=== PATIENT | male | born 1975 | race Hispanic/Latino ===

== ENCOUNTER 2020-12-09 18:33 | Inpatient (IN) | payer SELFPAY ==
[2020-12-09] MEDS ORDERED: Ondansetron PF 4 MG/2 ML Vial IVP PRN ×2 (20:10→20:15)
[2020-12-09] MEDS ORDERED: Sodium Chloride 0.9% 1,000 ML IV PRN ×4 (20:15)
[2020-12-09] MEDS ORDERED: Insulin Regular 300 UNITS/3 ML VIAL IVP SCH (20:15)
[2020-12-09] MEDS ORDERED: Dextrose 50% Abboject 50 ML SYRINGE SLOW IVP PRN (20:15)
[2020-12-09] MEDS ORDERED: Dextrose 5% in Water 1,000 ML IV PRN (20:15)
[2020-12-09] MEDS ORDERED: Electrolyte Replacement Protocol FS SCH (20:15)
[2020-12-09] MEDS ORDERED: HUMULIN R 100 UNITS in Sodium Chloride 0.9% 100 ML IVPB SCH (20:15)
[2020-12-09] MEDS ORDERED: D5 1/2 NS w/20 mEq KCL 1,000 ML ONE (20:15)
[2020-12-09] MEDS ORDERED: NS 0.9% w/ 20 MEQ KCL 1,000 ML/1,000 ML BAG IV PRN (20:15)
[2020-12-09] MEDS ORDERED: Ondansetron ODT 4 MG TAB SL PRN (20:15)
[2020-12-09] MEDS ORDERED: Dextrose 5 %-0.45 % NaCl 1,000 ML IV PRN (20:15)
[2020-12-09] MEDS ORDERED: Acetaminophen 325 MG TAB PO PRN (20:15)
[2020-12-09 20:22] VITALS: BMI 26.6
[2020-12-09 20:36] LABS: Hemoglobin A1c Greater than 14.0 % (4.0-6.0)
[2020-12-09 20:55] LABS: ALT (SGPT) 11 U/L (8-55); AST (SGOT) 9 U/L (5-34); Albumin 3.2 g/dL (3.5-5.0); Alkaline Phosphatase 155 U/L (40-110); Anion Gap 15 mmol/L (10-20); BUN (Urea Nitrogen) 10 mg/dL (8.9-20.6); Bilirubin, Total 0.2 mg/dL (0.2-1.2); Calc. Creatinine Clearance 109 mL/min (70-130); Carbon Dioxide 14 mmol/L (22-29); Chloride 115 mmol/L (98-107); Globulin 3.2 g/dL (2.4-3.5); Glucose 147 mg/dL (70-105); Potassium 3.2 mmol/L (3.5-5.1); Protein, Total 6.4 g/dL (6.0-8.3); Sodium 141 mmol/L (136-145)
[2020-12-09] MEDS: Potassium Chloride 10 MEQ in Premix Bag 1 BAG IVPB SCH ×2 (21:41→22:50)
[2020-12-09] MEDS: NS 0.9% w/ 20 MEQ KCL 1,000 ML/1,000 ML BAG IV PRN (21:41)
[2020-12-10 00:14] LABS: Anion Gap 19 mmol/L (10-20); BUN (Urea Nitrogen) 9 mg/dL (8.9-20.6); Calc. Creatinine Clearance 115 mL/min (70-130); Calcium 7.8 mg/dL (7.8-10.44); Carbon Dioxide 11 mmol/L (22-29); Chloride 115 mmol/L (98-107); Glucose 185 mg/dL (70-105); Potassium 3.9 mmol/L (3.5-5.1); Sodium 141 mmol/L (136-145)
[2020-12-10 00:33] LABS: HIV (1/2) Antibody/Antigen Non-Reactive (NonReactive); HIV 1/2 INDEX 0.17 S/CO (<1.00)
[2020-12-10] MEDS ORDERED: Potassium Chloride 20 MEQ in Premix Bag 1 BAG IVPB SCH (00:45)
[2020-12-10] MEDS: NS 0.9% w/ 20 MEQ KCL 1,000 ML/1,000 ML BAG IV PRN ×2 (02:12→06:11)
[2020-12-10 02:46] LABS: #Basophils 0.1 thou/uL (0.0-0.2); #Eosinphils 0.1 thou/uL (0.0-0.7); #Neutrophils 15.4 thou/uL (1.40-6.50); %Basophils 0.3 % (0.0-1.0); %Eosinophils 0.6 % (0.0-10.0); %Lymphocytes 10.6 % (21.0-51.0); %Monocytes 5.3 % (0.0-10.0); %Neutrophils 83.2 % (42.0-75.0); Hemoglobin 13.9 g/dL (14.0-18.0); Mean Corpuscular HGB CONC 34.2 g/dL (32.0-36.0); Mean Corpuscular Volume 93.6 fL (78.0-98.0); Mean Platelet Volume 7.5 fL (7.4-10.4); Platelet Count 305 thou/uL (130-400); RBC Distribution Width 11.7 % (11.5-14.5); Red Blood Cell (RBC) Count 4.33 mill/uL (4.70-6.10); White Blood Cell (WBC) Count 18.5 thou/uL (4.8-10.8)
[2020-12-10 03:08] LABS: Anion Gap 18 mmol/L (10-20); BUN (Urea Nitrogen) 7 mg/dL (8.9-20.6); Calc. Creatinine Clearance 109 mL/min (70-130); Calcium 8.2 mg/dL (7.8-10.44); Carbon Dioxide 11 mmol/L (22-29); Chloride 114 mmol/L (98-107); Glucose 179 mg/dL (70-105); Potassium 4.2 mmol/L (3.5-5.1); Sodium 139 mmol/L (136-145)
[2020-12-10 06:28] LABS: Anion Gap 16 mmol/L (10-20); BUN (Urea Nitrogen) 6 mg/dL (8.9-20.6); Calc. Creatinine Clearance 136 mL/min (70-130); Calcium 7.7 mg/dL (7.8-10.44); Carbon Dioxide 12 mmol/L (22-29); Chloride 115 mmol/L (98-107); Glucose 159 mg/dL (70-105); Potassium 3.7 mmol/L (3.5-5.1); Sodium 139 mmol/L (136-145)
[2020-12-10] MEDS: D5 1/2 NS w/20 mEq KCL 1,000 ML IV PRN ×4 (08:12→20:13)
[2020-12-10] MEDS: Enoxaparin Sodium 40 MG/0.4 ML SYRINGE SC SCH (08:32)
[2020-12-10] MEDS: Nystatin 500,000 UNITS/5 ML UDCUP SSW SCH ×4 (08:32→20:13)
[2020-12-10 10:22] LABS: Anion Gap 14 mmol/L (10-20); BUN (Urea Nitrogen) 5 mg/dL (8.9-20.6); Calc. Creatinine Clearance 136 mL/min (70-130); Calcium 7.9 mg/dL (7.8-10.44); Carbon Dioxide 16 mmol/L (22-29); Chloride 112 mmol/L (98-107); Glucose 197 mg/dL (70-105); Potassium 3.5 mmol/L (3.5-5.1); Sodium 138 mmol/L (136-145)
[2020-12-10] MEDS ORDERED: Potassium Chloride 40 MEQ in Sodium Chloride 0.9% 250 ML 250 ML IVPB SCH ×2 (10:45→20:15)
[2020-12-10 12:25] LABS: Anion Gap 13 mmol/L (10-20); BUN (Urea Nitrogen) 4 mg/dL (8.9-20.6); Calc. Creatinine Clearance 144 mL/min (70-130); Calcium 7.8 mg/dL (7.8-10.44); Carbon Dioxide 16 mmol/L (22-29); Chloride 110 mmol/L (98-107); Glucose 164 mg/dL (70-105); Potassium 3.4 mmol/L (3.5-5.1); Sodium 136 mmol/L (136-145)
[2020-12-10 14:35] LABS: Anion Gap 12 mmol/L (10-20); BUN (Urea Nitrogen) 4 mg/dL (8.9-20.6); Calc. Creatinine Clearance 148 mL/min (70-130); Calcium 7.8 mg/dL (7.8-10.44); Carbon Dioxide 17 mmol/L (22-29); Chloride 111 mmol/L (98-107); Glucose 178 mg/dL (70-105); Potassium 3.7 mmol/L (3.5-5.1); Sodium 136 mmol/L (136-145)
[2020-12-10 17:00] LABS: Anion Gap 16 mmol/L (10-20); BUN (Urea Nitrogen) 4 mg/dL (8.9-20.6); Calc. Creatinine Clearance 136 mL/min (70-130); Calcium 8.1 mg/dL (7.8-10.44); Carbon Dioxide 13 mmol/L (22-29); Chloride 109 mmol/L (98-107); Glucose 217 mg/dL (70-105); Potassium 4.3 mmol/L (3.5-5.1); Sodium 134 mmol/L (136-145)
[2020-12-10 19:54] LABS: Anion Gap 10 mmol/L (10-20); BUN (Urea Nitrogen) Less than 4 mg/dL (8.9-20.6); Calc. Creatinine Clearance 160 mL/min (70-130); Calcium 7.8 mg/dL (7.8-10.44); Carbon Dioxide 20 mmol/L (22-29); Chloride 105 mmol/L (98-107); Glucose 197 mg/dL (70-105); Sodium 132 mmol/L (136-145)
[2020-12-10] MEDS ORDERED: Potassium Chloride 20 MEQ TAB PO SCH (20:15)
[2020-12-10] MEDS: NPH, Human Insulin Isophane 300 UNIT/3 ML VIAL SC SCH (20:25)
[2020-12-10] MEDS ORDERED: Nystatin 500,000 UNITS/5 ML UDCUP SSW SCH (21:00)
[2020-12-10 23:53] LABS: Anion Gap 15 mmol/L (10-20); BUN (Urea Nitrogen) Less than 4 mg/dL (8.9-20.6); Calc. Creatinine Clearance 171 mL/min (70-130); Calcium 7.9 mg/dL (7.8-10.44); Carbon Dioxide 18 mmol/L (22-29); Chloride 101 mmol/L (98-107); Glucose 153 mg/dL (70-105); Magnesium 1.4 mg/dL (1.6-2.6); Potassium 3.4 mmol/L (3.5-5.1); Sodium 131 mmol/L (136-145)
[2020-12-11] MEDS ORDERED: HumaLOG 300 UNITS/3 ML VIAL SC PRN (02:20)
[2020-12-11] MEDS ORDERED: Dextrose 5% in Water 1,000 ML IV PRN (02:20)
[2020-12-11 03:35] LABS: #Eosinphils 0.1 thou/uL (0.0-0.7); #Lymphocytes 2.1 thou/uL (1.20-3.40); #Monocytes 0.8 thou/uL (0.11-0.59); #Neutrophils 8.8 thou/uL (1.40-6.50); %Eosinophils 1.2 % (0.0-10.0); %Monocytes 6.4 % (0.0-10.0); %Neutrophils 74.4 % (42.0-75.0); Hemoglobin 13.7 g/dL (14.0-18.0); Mean Corpuscular Volume 91.5 fL (78.0-98.0); Mean Platelet Volume 7.6 fL (7.4-10.4); Platelet Count 309 thou/uL (130-400); RBC Distribution Width 11.4 % (11.5-14.5); Red Blood Cell (RBC) Count 4.26 mill/uL (4.70-6.10); White Blood Cell (WBC) Count 11.9 thou/uL (4.8-10.8)
[2020-12-11 03:57] LABS: Anion Gap 16 mmol/L (10-20); BUN (Urea Nitrogen) Less than 4 mg/dL (8.9-20.6); Calc. Creatinine Clearance 177 mL/min (70-130); Calcium 8.1 mg/dL (7.8-10.44); Carbon Dioxide 17 mmol/L (22-29); Chloride 101 mmol/L (98-107); Glucose 169 mg/dL (70-105); Potassium 3.6 mmol/L (3.5-5.1); Sodium 130 mmol/L (136-145)
[2020-12-11] MEDS ORDERED: Magnesium Sulfate 4 GM in Sodium Chloride 0.9% 250 ML 250 ML IVPB SCH (06:15)
[2020-12-11] MEDS: Enoxaparin Sodium 40 MG/0.4 ML SYRINGE SC SCH (08:10)
[2020-12-11] MEDS: Nystatin 500,000 UNITS/5 ML UDCUP SSW SCH ×4 (08:11→20:47)
[2020-12-11] MEDS: metFORMIN 500 MG TAB PO SCH ×2 (08:11→17:20)
[2020-12-11] MEDS: NPH, Human Insulin Isophane 300 UNIT/3 ML VIAL SC SCH ×2 (08:19→20:47)
[2020-12-11] MEDS ORDERED: Magnesium Oxide 400 MG TAB PO ONE (09:00)
[2020-12-11] MEDS: Lisinopril 10 MG TAB PO SCH (10:17)
[2020-12-11] MEDS: Lactated Ringer's 1,000 ML IV SCH ×2 (10:17→17:20)
[2020-12-11 10:43] LABS: ALT (SGPT) 9 U/L (8-55); AST (SGOT) 11 U/L (5-34); Alkaline Phosphatase 153 U/L (40-110); Anion Gap 15 mmol/L (10-20); BUN (Urea Nitrogen) 5 mg/dL (8.9-20.6); Bilirubin, Total 0.2 mg/dL (0.2-1.2); Calc. Creatinine Clearance 146 mL/min (70-130); Calcium 8.1 mg/dL (7.8-10.44); Carbon Dioxide 19 mmol/L (22-29); Chloride 98 mmol/L (98-107); Globulin 3.2 g/dL (2.4-3.5); Glucose 374 mg/dL (70-105); Potassium 3.8 mmol/L (3.5-5.1); Protein, Total 6.2 g/dL (6.0-8.3); Sodium 128 mmol/L (136-145)
[2020-12-11] MEDS: HumaLOG 300 UNITS/3 ML VIAL SC PRN ×2 (10:53→21:28)
[2020-12-11 14:19] LABS: ALT (SGPT) 9 U/L (8-55); AST (SGOT) 10 U/L (5-34); Albumin 2.9 g/dL (3.5-5.0); Alkaline Phosphatase 143 U/L (40-110); Anion Gap 14 mmol/L (10-20); BUN (Urea Nitrogen) 5 mg/dL (8.9-20.6); Bilirubin, Total 0.2 mg/dL (0.2-1.2); Calc. Creatinine Clearance 144 mL/min (70-130); Calcium 8.2 mg/dL (7.8-10.44); Carbon Dioxide 24 mmol/L (22-29); Chloride 99 mmol/L (98-107); Glucose 257 mg/dL (70-105); Potassium 3.5 mmol/L (3.5-5.1); Protein, Total 5.9 g/dL (6.0-8.3); Sodium 133 mmol/L (136-145)
[2020-12-12] MEDS: Lactated Ringer's 1,000 ML IV SCH (01:08)
[2020-12-12] MEDS: HumaLOG 300 UNITS/3 ML VIAL SC PRN ×2 (06:17→14:55)
[2020-12-12 06:26] LABS: #Eosinphils 0.1 thou/uL (0.0-0.7); #Monocytes 0.7 thou/uL (0.11-0.59); %Basophils 0.5 % (0.0-1.0); %Eosinophils 1.9 % (0.0-10.0); %Lymphocytes 29.3 % (21.0-51.0); %Monocytes 9.6 % (0.0-10.0); %Neutrophils 58.6 % (42.0-75.0); Hemoglobin 12.6 g/dL (14.0-18.0); Mean Corpuscular HGB CONC 34.8 g/dL (32.0-36.0); Mean Corpuscular Hemoglobin 31.8 pg (27.0-31.0); Mean Corpuscular Volume 91.3 fL (78.0-98.0); Mean Platelet Volume 7.5 fL (7.4-10.4); Platelet Count 301 thou/uL (130-400); RBC Distribution Width 11.3 % (11.5-14.5); Red Blood Cell (RBC) Count 3.95 mill/uL (4.70-6.10); White Blood Cell (WBC) Count 6.8 thou/uL (4.8-10.8)
[2020-12-12 06:45] LABS: Anion Gap 15 mmol/L (10-20); BUN (Urea Nitrogen) 7 mg/dL (8.9-20.6); Calc. Creatinine Clearance 179 mL/min (70-130); Calcium 7.8 mg/dL (7.8-10.44); Carbon Dioxide 24 mmol/L (22-29); Chloride 98 mmol/L (98-107); Glucose 219 mg/dL (70-105); Potassium 3.2 mmol/L (3.5-5.1); Sodium 134 mmol/L (136-145)
[2020-12-12] MEDS ORDERED: Potassium Chloride 20 MEQ TAB PO SCH (07:00)
[2020-12-12] MEDS ORDERED: NPH, Human Insulin Isophane 300 UNIT/3 ML VIAL SC SCH ×3 (09:00→21:00)
[2020-12-12] MEDS: metFORMIN 500 MG TAB PO SCH (09:16)
[2020-12-12] MEDS: Lisinopril 10 MG TAB PO SCH (09:16)
[2020-12-12] MEDS: Enoxaparin Sodium 40 MG/0.4 ML SYRINGE SC SCH (09:17)
[2020-12-12] MEDS: Nystatin 500,000 UNITS/5 ML UDCUP SSW SCH ×2 (09:17→14:54)
[2020-12-12 12:37] VITALS: BP 139/80; TEMP 98.1
== END 2020-12-12 16:00 | disposition home or self-care (01) | DRG 638 ==
LOC: IMCU/EMU 19:59 → ONC 12-11 19:45
PROVIDERS: ADMIT Student in an Organized Health Care Education/Training Program; ATTEND Family Medicine
DX: E11.10 Type 2 diabetes mellitus with ketoacidosis without coma (principal); B37.0 Candidal stomatitis; I10 Essential (primary) hypertension; Z87.891 Personal history of nicotine dependence
CPT/HCPCS: 36415; 36416; 80048; 83036; 83735; 85025; 87389; J1650; J1815; J3475; J3480; J3490; J7050

== ENCOUNTER → 2020-12-20 | Day surgery (SDC) | payer SELFPAY ==
[~2020-12-20] MED LIST: FLU VACC QS2020-21(6MOS UP)/PF 60 MCG/0.5 ML SYRINGE IM ONE; Sodium Bicarbonate 2.5 MEQ/5 ML VIAL ONE
[2020-12-20 10:22] VITALS: BMI 26.8
[2020-12-20 12:36] VITALS: TEMP 97.7
== END ==
LOC: CT 11:59 → EDSTATUS 13:00
PROVIDERS: ATTEND Internal Medicine Infectious Disease
PROC: 0W9H3ZX Drainage of Retroperitoneum, Percutaneous Approach, Diagnostic (ICD-10-PCS; principal; 2020-12-20)
DX: G95.89 Other specified diseases of spinal cord (principal); E11.9 Type 2 diabetes mellitus without complications; I10 Essential (primary) hypertension; Z87.891 Personal history of nicotine dependence
CPT/HCPCS: 49180; 77012; 87206; 88305; 88333